=== PATIENT | male | born 1975 | race African-American/Black ===

== ENCOUNTER 2021-04-07 09:27 | Emergency (ER) | payer BC ==
[~2021-04-07] VITALS: Ht 177.8 cm; Wt 109.3 kg
[2021-04-07] MEDS ORDERED: Zovirax800 MG PO (10:02)
== END 2021-04-07 10:06 | disposition home or self-care (01) ==
LOC: ER 09:27
DX: G51.0 Bell's palsy (principal)
CPT/HCPCS: 99283

== ENCOUNTER 2021-06-10 06:38 | Emergency (ER) | payer OTHER ==
[~2021-06-10] VITALS: Ht 177.8 cm; Wt 108.9 kg
[~2021-06-10 06:38] MED LIST: Zovirax800 MG PO
[2021-06-10] MEDS ORDERED: Roxicodone5 MG PO (09:12)
== END 2021-06-10 09:34 | disposition home or self-care (01) ==
LOC: ER 06:38
DX: S43.005A Unspecified dislocation of left shoulder joint, initial encounter (principal); X58.XXXA Exposure to other specified factors, initial encounter
CPT/HCPCS: 23655; 73020; 73030; 96374-59; 96375-59; 99283-25; J1170; J2405; J2704; J7030